=== PATIENT | male | born 1965 | race Caucasian/White ===

== ENCOUNTER 2022-11-15 09:02 | Emergency (ER) | payer MEDICAID, SELFPAY ==
[2022-11-15 09:18] VITALS: BP 135/84; PULSE 78; RESP 18; TEMP 36.2; O2SAT 96
--- NOTE | 2022-11-15 09:26 | ED.GENADULT ---
HPI - General Adult General Time Seen by Provider: 09:26 Date Seen: 11/15/22 Chief complaint: Unspecified Complaint, Adult Stated complaint: Medication refill Time Seen by Provider: 11/15/22 09:26 Source: patient and RN notes reviewed Mode of arrival: ambulatory Limitations: no limitations History of Present Illness HPI narrative: Patient is a very pleasant 56-year-old gentleman who is currently a resident at [facility] in [place] who is sent to the emergency room for refill of his medications. He states that he did bring his medications with but they are unable to give them out as they are not in the prepackaged pill packs. [facility] is requesting that we actually send prescriptions to [facility]. Currently patient is on amlodipine 10 mg daily, hydroxyzine 25-50 mg p.o. q.h.s. p.r.n., Flomax 0.4 mg p.o. b.i.d. and he is also requesting omeprazole as he has history of reflux. 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 He feels that he is doing well but is worried about going back home. Related Data Home Medications Medication Instructions Recorded Confirmed amlodipine 10 mg tablet 10 mg PO DAILY 11/15/22 11/15/22 hydroxyzine pamoate 25 mg capsule 25 - 50 mg PO QHS 11/15/22 11/15/22 tamsulosin 0.4 mg capsule (Flomax) 0.8 mg PO DAILY 11/15/22 11/15/22 Previous Rx's Medication Instructions Recorded amlodipine 10 mg tablet 10 mg PO DAILY #30 tabs 11/15/22 hydroxyzine pamoate 25 mg capsule 25 mg PO QHS #60 caps 11/15/22 omeprazole 40 mg capsule,delayed 40 mg PO DAILY #30 caps 11/15/22 release tamsulosin 0.4 mg capsule 0.4 mg PO BID #60 caps 11/15/22 Allergies Allergy/AdvReac Type Severity Reaction Status Date / Time No Known Drug Allergies Allergy Verified 11/15/22 09:16 [facility] Social History Smoking Status: Current some day smoker How often do you have a drink containing alcohol: never AUDIT-C Alcohol total score: 0 Non-prescribed substance use: denies use service: No Exam Narrative: Exam Narrative: Alert and oriented and not in any acute distress. No respiratory distress. Very pleasant gentleman. Const: Vital Signs, click to edit/add: Vital Signs - 24 hr 11/15/22 09:18 Temperature 97.2 F L Pulse Rate [Pulse Oximeter] 78 Respiratory Rate 18 Blood Pressure [Ri ght Upper Arm] 135/84 Pulse Oximetry 96 Oxygen Delivery Me thod Room Air Course Vital Signs Vital signs: Initial Vital Signs Temperature 97.2 F L 11/15/22 09:18 Temperature Source Temporal Artery Scan 11/15/22 09:18 Pulse Rate 78 11/15/22 09:18 Respiratory Rate 18 11/15/22 09:18 Blood Pressure 135/84 11/15/22 09:18 Blood Pressure Mean 101 11/15/22 09:18 Blood Pressure Position Sitting 11/15/22 09:18 Pulse Oximetry 96 11/15/22 09:18 Oxygen Delivery Method Room Air 11/15/22 09:18 Vital Signs Temperature 97.2 F L 11/15/22 09:18 Pulse Rate 78 11/15/22 09:18 Respiratory Rate 18 11/15/22 09:18 Blood Pressure 135/84 11/15/22 09:18 Pulse Oximetry 96 11/15/22 09:18 Oxygen Delivery Method Room Air 11/15/22 09:18 Temperature 97.2 F L 11/15/22 09:18 Pulse Rate 78 11/15/22 09:18 Respiratory Rate 18 11/15/22 09:18 Blood Pressure 135/84 11/15/22 09:18 Pulse Oximetry 96 11/15/22 09:18 Oxygen Delivery Method Room Air 11/15/22 09:18 Medical Decision Making MDM Narrative Medical decision making narrative: 1. Medication refill-patient notes his not taken his medications since SaturdayNovember 12. Therefore in the ED he is given from his own stock Flomax 0.4 mg p.o. and amlodipine 10 mg p.o. we also given 1 dose of omeprazole 40 mg p.o.. His prescriptions were then sent to [facility] amlodipine 10 mg daily number 30, hydroxyzine 25-50 mg q.h.s. p.r.n. number 60, omeprazole 40 mg daily number 30, Flomax 0.4 mg p.o. b.i.d. number 60 2. Disposition-patient departs. Discharge Plan Discharge Clinical Impression: Encounter for medication refill Patient Disposition: Home, Self-Care Condition: Unchanged Additional Instructions: Your medications were sent to [facility]. Prescriptions: New omeprazole 40 mg capsule,delayed release(DR/EC) 40 mg PO DAILY Qty: 30 2RF tamsulosin 0.4 mg capsule 0.4 mg PO BID Qty: 60 2RF amlodipine 10 mg tablet 10 mg PO DAILY Qty: 30 2RF hydroxyzine pamoate 25 mg capsule 25 mg PO QHS Qty: 60 0RF Rx Instructions: May take 1-2 tabs at night before bed No Action tamsulosin [Flomax] 0.4 mg capsule 0.8 mg PO DAILY amlodipine 10 mg tablet 10 mg PO DAILY hydroxyzine pamoate 25 mg capsule 25 - 50 mg PO QHS Stand Alone Forms: [employer] Info Instructions
[2022-11-15] MEDS: OMEPRAZOLE 20 MG CAPSULE DR 40 MG PO (09:45)
--- NOTE | 2022-11-15 09:45 | ED.NURSE ---
Patient given omeprazole per order, see eMAR. Per Dr. Ortiz direction, also took #1 Amlodipine and #1 tamsulosin from personal supply. Patient denies questions or concerns, understands medications have been sent to [facility] per request of recovery facility.
== END 2022-11-15 09:57 | disposition home or self-care (01) ==
PROVIDERS: Emergency Provider Family Medicine
DX: Z76.0 Encounter for issue of repeat prescription (principal)
CPT/HCPCS: 99282; A9270